=== PATIENT | male | born 1975 | race Caucasian/White ===

== ENCOUNTER 2017-09-05 14:00 | Outpatient (RCR) | payer BC, SELFPAY ==
--- NOTE | 2017-06-27 10:59 | HP.PTEVAL_ITS ---
Patient's Visit Information NAIF BAKER is a 41 year old M referred to Physical Therapy by Shahid Benjamin with a diagnosis of RIGHT HIP LABRAL REPAIR ON 11/01/15 WITH REQUEST TO WORK ON PIRIFORMIS AND LB. Date of Evaluation: 06/26/17 Physical Therapist: Violeta Sams - Visit Plan Frequency: 2-3x /Week Duration: 4-6 Weeks Plan: POSTURE CORRECTION/STRENGTHENING, INSTRUCTION IN APPROPRIATE BODY MECHANICS AND ACTIVITY MODIFICATIONS. DLS STARTING WITH A NEUTRAL SPINE AND PROGRESSING ROM TOLERATED. SHOSHANA LE ROM, STRETCHING AND STRENGTHENING. HEP INSTRUCTION. RIGHT ROTATOR CUFF STRENGTHEING PROGRAM. VIDEO ANALYSIS WITH CORRECTIVE EX PROGRAM. - Subjective Subjective: Work/Leisure: GENER[employer] FOR [employer]. Disability: NO. Present symptoms: RIGHT LATERAL AND POSTERIOR HIP PAIN. RIGHT ANTERIOR AND AC JOINT PAIN. CHRONIC RIGHT BICEPS TENDONITIS. Present since: BACK: Jan, SHOULDER: ABOUT 7 YEARS. Pain Scale: BACK: WORST 6/10, LEAST 1/10, SHOULDER: WORST 8/10, LEAST 0/10. Currently: BACK: 1/10, SHOULDER: 0/10. Commenced as a result of: ACCUMULATION OF A LOT OF RUNNING (ABOUT 10 MILES ONCE A WEEK), BIKING (ABOUT 60 MILES ONCE A WEEK), AND BUILDING A PATIO. SPENT THE DAY BENT OVER WORKING ON PATIO AND FELT THE MUSCLES IN HIS BACK START TO LOCK UP BUT KEPT WORKING ANYWAY. BY THE EVENING COULD BARELY WALK FOR ABOUT 5 DAYS. I HAVE NEVER HAD SPASMS IN MY BACK LIKE THAT BEFORE. FAR HIS SHOULDER PAIN GOES HE STATES IT IS CHRONIC. SHOULDER MIGHT JUST BE FROM WORKING. Symptoms at onset: BACK FOR HIP AND SHOULDER FOR SHOULDER THEN MIGRATED INTO BICEPS. Worse: BACK: HARD TO MOVE WHEN GETTING UP IN THE MORNING - THE RIGHT LEG WON'T WORK. RUNNING. SQUATTING FOR STRENGTHEING. REALLY TRYING TO DO ANY SORT OF LEG STRENGTHENING. BIKING EVEN HURTS NOW. RUNNING. BENDING. LIFTING. SHOULDER: PULL UP, BENCH PRESS, ANYTHING OVER-HEAD AND RUNNING. Better: BACK: RESTING - NOT EXERCISING, BUT SOMETIMES EX HELPS TOO. SHOULDER: RESTING - NOT EXERCISING. Disturbed sleep: NO. Previous history/Previous treatment: BACK: ACUPUNCTURE - HELPED, CHIROPRACTOR - HELPED , MASSAGE - HELPED, PT - HELPED TOO. RIGHT SHOULDER: SHOSHANA SHOULDER CORTISONE INJECTIONS - WITH SOME BENEFIT. Coughing/sneezing/straining: NO. Gait: NOT CURRENTLY. Difficulty initiating urinatin: NO. Accidents: NO. Unexplained weight loss: NO. Imaging: BACK: CHIROPRACTIC X-RAYS IN THE PAST WITH MILD DEGERATIVE CHANGES. NO MRI. RIGHT SHOULDER: X-RAYS AND MRI - BONE SPUR, LABRAL TEAR, MILD AC JT ARTHRITIS. ROTATOR CUFF LOOKS GOOD. PMH: UNREMARKABLE. 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 - Objective Sitting Posture: POOR. Standing Posture: FAIR. Lordosis: NORMAL. Lateral shift: NO (PATIENT DOES DESCRIBE THAT HE HAS HOWEVER BEEN WAKING UP WITH A RIGHT LATERAL SHIFT FOR A LONG TIME). Relevant shift: N/A. Other Observations : INDEP GAIT AND TRANSFERS WITHOUT OBVIOUS DEVIATIONS. Motor deficit: SHOSHANA UE AND LE MMT 5/5. ROM deficit: TIGHT SHOSHANA HS'S AND GASTROC SOLEUS COMPLEX'S. Dural Signs: POSITIVE SHOSHANA LE DURAL SIGNS *LEFT GREATER THAN RIGHT. Lumbar mvmt loss: flex - MIN. ext - MIN. R SG - NIL. L SG - MIN. Core strength: POOR. Palpation: NO PALPABLE TENDERNESS OF SHOULDER, HIP OR LUMBAR REGIONS TODAY - Goals Goal 1:: DECREASE C/O RIGHT LE SX'S Goal Time Frame: 4-6 Weeks Goal 2:: DECREASE C/O RIGHT SHOULDER SX'S Goal Time Frame: 4-6 Weeks Goal 3:: IMPROVE BENDING, LIFTING, SQUATTING, RUNNING, BIKING AND WEIGHT LIFTING FUNCTION. Goal Time Frame: 4-6 Weeks Goal 4:: INSTRUCT IN PROPHYLAXIS Goal Time Frame: 4-6 Weeks - Rehabilitation Potential Physical Therapy Diagnosis: PHYSICIAN DIAGNOSIS CONTINUED: IMPINGEMENT SYNDROME OF THE RIGHT SHOULDER. Rehabilitation Potential: Good - Anticipated Interventions Patient/Client Instruction: Educate patient on: Condition, Plan of Care, Risk Factors, Benefits of Fitness Program For the Purpose of:: To improve self management Therapeutic Exercise to Include: Strength training, Body mechanics, Postural training, Flexibilty training, Dynamic Lumbar Stabilization, Scapular Strength/ Stabilization For the Purpose of:: To improve muscle performance and motor function, To increase tolerance to activity/condition/position, To improve ability of physical actions for home/community/work/leisure, To increase flexibility/ROM, To reduce risk of recurrence TENS: Yes IF ES: Yes Cryotherapy (ice pack, ice massage): Yes Thermo therapy (hot pack): Yes Ultrasound (thermal/non thermal): Yes For the Purpose of:: To decrease pain, To decrease swelling/inflammation, To increase ROM Thank you for the opportunity to evaluate your patient. For Medicare and Medicare HMO plans, please review the plan of care and approve it. It will need to be FAXED BACK to us at [phone] for Medicare purposes. Please let me know if there are questions or concerns regarding this plan of care. Physician Signature: Date:
--- NOTE | 2018-01-08 14:07 | HP.PTDCNRP_ITS ---
HP - Discharge Summary (1) - Patient Information NAIF BAKER was seen in my office for initial evaluation on 06/26/17. The following Plan of Care was established for this patient: Initial Frequency: 2-3x /Week Initial Duration: 4-6 Weeks - Anticipated Interventions Patient/Client Instruction: Educate patient on: Condition, Plan of Care, Risk Factors, Benefits of Fitness Program For the Purpose of:: To improve self management Therapeutic Exercise to Include: Strength training, Body mechanics, Postural training, Flexibilty training, Dynamic Lumbar Stabilization, Scapular Strength/ Stabilization For the Purpose of:: To improve muscle performance and motor function, To increase tolerance to activity/condition/position, To improve ability of physical actions for home/community/work/leisure, To increase flexibility/ROM, To reduce risk of recurrence TENS: Yes IF ES: Yes Cryotherapy (ice pack, ice massage): Yes Thermo therapy (hot pack): Yes Ultrasound (thermal/non thermal): Yes For the Purpose of:: To decrease pain, To decrease swelling/inflammation, To increase ROM This patient was last seen in our office 09/05/17. Pertinent comments regarding their Physical therapy will appear below: Patient has been instructed in home ex program and has been discharged from Physical Therapy. At this point I will be discontinuing this patient from physical therapy. I would be happy to see this patient again in the future if found appropriate by the physician. Thank you! Violeta Sams
== END 2017-09-05 19:00 | disposition home or self-care (01) ==
LOC: PT 14:00
PROVIDERS: Visit Provider Orthopaedic Surgery Sports Medicine
DX: S73.191A Other sprain of right hip, initial encounter (principal)
CPT/HCPCS: 97110; 97161; 97162; 97530

== ENCOUNTER → 2019-10-03 07:09 | Outpatient (CLI) | payer BC, SELFPAY ==
[2019-10-03 10:14] LABS: Hematocrit 51.2 % (40-54); Mean Corp Hgb Conc 33.2 g/dL (32-36); Mean Corpuscular Hgb 29.8 pg (27.0-32.0); Mean Corpuscular Volume 89.8 fL (80-94); Mean Platelet Vol. 9.2 fl (6.2-12.0); Platelet Count 224 K/mm3 (150-450); RBC Distribution Width CV 11.9 % (11.6-14.6); White Blood Count 4.5 K/mm3 (4.4-11.0)
[2019-10-03 10:25] LABS: Progesterone Level 0.32 ng/mL (See Comment); Vitamin B12 733 pg/mL (211-911); Vitamin D,25 Hydroxy 58.4 ng/mL
[2019-10-03 10:33] LABS: ALB/GLOB Ratio 1.4 RATIO (0.9-2.4); AST(SGOT) 29 U/L (15-37); Alanine Aminotransfer ALT/SGPT 37 U/L (16-61); Alkaline Phosphatase 68 U/L (45-117); Anion Gap 5 (5-15); BUN 20 mg/dL (7-18); BUN/Creat Ratio 18.9 RATIO (10-20); Calcium,Total 8.8 mg/dL (8.5-10.1); Chloride 109 mmol/L (98-107); Cholesterol 213 mg/dL (200); Creatinine, Serum 1.06 mg/dL (0.70-1.30); EST Glomerular Filtration Rate 81 mL/min (>60); Est Glom Filt Rate - Afr Amer 98 mL/min (>60); Estradiol 42.5 pg/mL; Globulin 2.9 g/dL (2.2-4.2); Glucose 82 mg/dL (74-106); High Density Lipoprotein 60 mg/dL; PSA,Total - Annual Screen 0.96 ng/mL (0.00-4.00); Protein, Total 6.9 g/dL (6.4-8.2); Sodium Level 141 mmol/L (136-145); Triglycerides 66 mg/dL; Very Low Density Lipoprotein 13 mg/dL (5-40)
[2019-10-05 20:06] LABS: Testosterone, % Free 3.35 % (1.50-4.20); Testosterone, Free 35.11 ng/dL (5.00-21.00)
[2019-10-06 16:00] LABS: DHEA Sulfate 226.5 ug/dL (102.6-416.3); Testosterone, Total 1048 ng/dL (264-916)
== END ==
PROVIDERS: PCP Nurse Practitioner Family; Referring Provider Nurse Practitioner Family; Visit Provider Nurse Practitioner Family
DX: R53.82 Chronic fatigue, unspecified (principal); M62.81 Muscle weakness (generalized); R68.82 Decreased libido
CPT/HCPCS: 36415; 80053; 80061; 82306; 82607; 82627; 82670; 82746; 84144; 84153; 84402; 84403; 85027; 82626; G0103

== ENCOUNTER → 2020-03-05 07:20 | Outpatient (CLI) | payer BC, SELFPAY ==
[2020-03-05 10:13] LABS: Hematocrit 49.2 % (40-54); Hemoglobin 16.8 g/dL (13.0-16.5); Mean Corp Hgb Conc 34.1 g/dL (32-36); Mean Corpuscular Hgb 29.8 pg (27.0-32.0); Mean Corpuscular Volume 87.4 fL (80-94); Mean Platelet Vol. 9.4 fl (6.2-12.0); Platelet Count 223 K/mm3 (150-450); RBC Distribution Width SD 38.4 fl (35.1-43.9); Red Blood Count 5.63 M/mm3 (4.6-6.2); White Blood Count 5.7 K/mm3 (4.4-11.0)
[2020-03-05 10:42] LABS: Progesterone Level 0.52 ng/mL (See Comment); Vitamin B12 618 pg/mL (211-911); Vitamin D,25 Hydroxy 101.7 ng/mL
[2020-03-05 10:55] LABS: ALB/GLOB Ratio 1.3 RATIO (0.9-2.4); AST(SGOT) 24 U/L (15-37); Alanine Aminotransfer ALT/SGPT 42 U/L (16-61); Albumin, Serum 3.9 g/dL (3.2-5.0); Alkaline Phosphatase 60 U/L (45-117); Anion Gap 6 (5-15); BUN 19 mg/dL (7-18); BUN/Creat Ratio 18.4 RATIO (10-20); Calcium,Total 8.8 mg/dL (8.5-10.1); Chloride 106 mmol/L (98-107); Cholesterol 205 mg/dL (200); Creatinine, Serum 1.03 mg/dL (0.70-1.30); EST Glomerular Filtration Rate 84 mL/min (>60); Est Glom Filt Rate - Afr Amer 101 mL/min (>60); Estradiol 65.4 pg/mL; Glucose 85 mg/dL (74-106); High Density Lipoprotein 60 mg/dL; Potassium 3.9 mmol/L (3.5-5.1); Protein, Total 6.9 g/dL (6.4-8.2); Sodium Level 140 mmol/L (136-145); Triglycerides 84 mg/dL; Very Low Density Lipoprotein 17 mg/dL (5-40)
[2020-03-09 09:06] LABS: Testosterone, % Free 4.53 % (1.50-4.20); Testosterone, Free 44.58 ng/dL (5.00-21.00)
[2020-03-09 11:15] LABS: Testosterone, Total 984 ng/dL (264-916)
== END ==
PROVIDERS: PCP Nurse Practitioner Family; Referring Provider Nurse Practitioner Family; Visit Provider Nurse Practitioner Family
DX: R53.82 Chronic fatigue, unspecified (principal); M62.81 Muscle weakness (generalized); R68.82 Decreased libido
CPT/HCPCS: 36415; 80053; 80061; 82306; 82607; 82627; 82670; 82746; 84144; 84402; 84403; 85027; 82626

== ENCOUNTER → 2020-05-14 08:35 | Outpatient (CLI) | payer BC, SELFPAY ==
[2020-05-14 09:51] LABS: Hematocrit 50.3 % (40-54); Hemoglobin 17.2 g/dL (13.0-16.5); Mean Corp Hgb Conc 34.2 g/dL (32-36); Mean Corpuscular Hgb 29.6 pg (27.0-32.0); Mean Corpuscular Volume 86.4 fL (80-94); Mean Platelet Vol. 8.8 fl (6.2-12.0); Platelet Count 215 K/mm3 (150-450); RBC Distribution Width CV 11.9 % (11.6-14.6); RBC Distribution Width SD 37.2 fl (35.1-43.9); Red Blood Count 5.82 M/mm3 (4.6-6.2); White Blood Count 4.6 K/mm3 (4.4-11.0)
[2020-05-14 10:12] LABS: Progesterone Level 0.33 ng/mL (See Comment); Vitamin B12 758 pg/mL (211-911); Vitamin D,25 Hydroxy 100.3 ng/mL
[2020-05-14 10:49] LABS: ALB/GLOB Ratio 1.2 RATIO (0.9-2.4); AST(SGOT) 18 U/L (15-37); Alanine Aminotransfer ALT/SGPT 35 U/L (16-61); Albumin, Serum 4.1 g/dL (3.2-5.0); Alkaline Phosphatase 69 U/L (45-117); Anion Gap 4 (5-15); BUN 17 mg/dL (7-18); BUN/Creat Ratio 16.5 RATIO (10-20); Chloride 105 mmol/L (98-107); Cholesterol 216 mg/dL (200); Creatinine, Serum 1.03 mg/dL (0.70-1.30); EST Glomerular Filtration Rate 84 mL/min (>60); Est Glom Filt Rate - Afr Amer 101 mL/min (>60); Estradiol 47.9 pg/mL; Globulin 3.3 g/dL (2.2-4.2); Glucose 91 mg/dL (74-106); High Density Lipoprotein 65 mg/dL; Potassium 4.1 mmol/L (3.5-5.1); Protein, Total 7.4 g/dL (6.4-8.2); Sodium Level 138 mmol/L (136-145); Triglycerides 44 mg/dL; Very Low Density Lipoprotein 9 mg/dL (5-40)
[2020-05-18 12:07] LABS: Testosterone, % Free 3.86 % (1.50-4.20); Testosterone, Free 36.28 ng/dL (5.00-21.00)
[2020-05-18 13:31] LABS: Testosterone, Total 940 ng/dL (264-916)
== END ==
PROVIDERS: PCP Nurse Practitioner Family; Referring Provider Nurse Practitioner Family; Visit Provider Nurse Practitioner Family
DX: R53.82 Chronic fatigue, unspecified (principal); M62.81 Muscle weakness (generalized); R68.82 Decreased libido
CPT/HCPCS: 36415; 80053; 80061; 82306; 82607; 82627; 82670; 82746; 84144; 84402; 84403; 85027; 82626

== ENCOUNTER → 2020-08-06 07:29 | Outpatient (CLI) | payer BC, SELFPAY ==
[2020-08-06 10:39] LABS: Hematocrit 51.1 % (40-54); Hemoglobin 17.6 g/dL (13.0-16.5); Mean Corp Hgb Conc 34.4 g/dL (32-36); Mean Corpuscular Hgb 29.5 pg (27.0-32.0); Mean Corpuscular Volume 85.6 fL (80-94); Platelet Count 242 K/mm3 (150-450); RBC Distribution Width CV 11.9 % (11.6-14.6); Red Blood Count 5.97 M/mm3 (4.6-6.2); White Blood Count 4.7 K/mm3 (4.4-11.0)
[2020-08-06 10:53] LABS: Hemoglobin A1c 4.8 % (3.8-5.6)
[2020-08-06 10:55] LABS: Progesterone Level 0.21 ng/mL (See Comment); T3 Total - Triiodothyronine 0.83 ng/mL (0.6-1.81); Vitamin B12 680 pg/mL (211-911); Vitamin D,25 Hydroxy 81.3 ng/mL
[2020-08-06 11:06] LABS: Homocysteine 7.8 umol/L (3.2-10.7)
[2020-08-06 11:13] LABS: ALB/GLOB Ratio 1.4 RATIO (0.9-2.4); AST(SGOT) 20 U/L (15-37); Alanine Aminotransfer ALT/SGPT 31 U/L (16-61); Albumin, Serum 4.2 g/dL (3.2-5.0); Alkaline Phosphatase 74 U/L (45-117); Anion Gap 4 (5-15); BUN 18 mg/dL (7-18); BUN/Creat Ratio 15.9 RATIO (10-20); CRP, High Sensitivity Cardiac 0.25 mg/L; Chloride 105 mmol/L (98-107); Cholesterol 221 mg/dL (200); Creatinine, Serum 1.13 mg/dL (0.70-1.30); EST Glomerular Filtration Rate 75 mL/min (>60); Est Glom Filt Rate - Afr Amer 91 mL/min (>60); Estradiol 48.3 pg/mL; Follicle Stimulating Hormone < 0.2 mIU/mL; Globulin 3.1 g/dL (2.2-4.2); Glucose 91 mg/dL (74-106); High Density Lipoprotein 60 mg/dL; Iron 132 ug/dL (65-175); Luteinizing Hormone < 0.2 mIU/mL; Magnesium 2.3 mg/dL (1.6-2.6); PSA,Total - Annual Screen 0.95 ng/mL (0.00-4.00); Prolactin 5.6 ng/mL; Protein, Total 7.3 g/dL (6.4-8.2); Sodium Level 138 mmol/L (136-145); T4 Free Direct 1.09 ng/dL (0.76-1.46); T4 Total, Thyroxin 6.7 ug/dL (4.5-12.1); Thyroid Stim Hormone (TSH) 1.83 uIU/mL (0.358-3.74); Triglycerides 77 mg/dL; Very Low Density Lipoprotein 15 mg/dL (5-40)
[2020-08-09 09:07] LABS: DHEA Sulfate 92.1 ug/dL (102.6-416.3); Insulin Like Growth Factor 193 ng/mL (84-270); Testosterone, % Free 3.65 % (1.50-4.20); Testosterone, Free 37.45 ng/dL (5.00-21.00)
[2020-08-09 13:45] LABS: Sex Hormone-binding Globulin 42.8 nmol/L (16.5-55.9); Testosterone, Total 1026 ng/dL (264-916)
== END ==
PROVIDERS: PCP Nurse Practitioner Family; Referring Provider Nurse Practitioner Family; Visit Provider Nurse Practitioner Family
DX: R53.82 Chronic fatigue, unspecified (principal); M62.81 Muscle weakness (generalized); R68.82 Decreased libido
CPT/HCPCS: 36415; 80053; 80061; 82306; 82533; 82607; 82627; 82670; 82746; 83001; 83002; 83036; 83090; 83540; 83735; 84144; 84146; 84153; 84270; 84305; 84402; 84403; 84436; 84439; 84443; 84480; 85027; 86141; 82626; G0103

== ENCOUNTER → 2021-02-18 07:00 | Outpatient (CLI) | payer BC, SELFPAY ==
[2021-02-18 10:01] LABS: Hematocrit 52.5 % (40-54); Mean Corp Hgb Conc 34.3 g/dL (32-36); Mean Corpuscular Hgb 29.5 pg (27.0-32.0); Mean Corpuscular Volume 85.9 fL (80-94); Mean Platelet Vol. 9.3 fl (6.2-12.0); Platelet Count 225 K/mm3 (150-450); RBC Distribution Width CV 12.2 % (11.6-14.6); RBC Distribution Width SD 38.2 fl (35.1-43.9); Red Blood Count 6.11 M/mm3 (4.6-6.2); White Blood Count 5.3 K/mm3 (4.4-11.0)
[2021-02-18 10:04] LABS: Scan Indicated on CBC? Y/N NO
[2021-02-18 10:14] LABS: Homocysteine 8.8 umol/L (3.2-10.7)
[2021-02-18 10:24] LABS: Hemoglobin A1c 4.8 % (3.8-5.6)
[2021-02-18 10:49] LABS: ALB/GLOB Ratio 1.2 RATIO (0.9-2.4); AST(SGOT) 20 U/L (15-37); Alanine Aminotransfer ALT/SGPT 32 U/L (16-61); Alkaline Phosphatase 60 U/L (45-117); Anion Gap 5 (5-15); BUN 18 mg/dL (7-18); BUN/Creat Ratio 16.8 RATIO (10-20); CRP, High Sensitivity Cardiac 0.43 mg/L; Calcium,Total 8.9 mg/dL (8.5-10.1); Chloride 106 mmol/L (98-107); Cholesterol 208 mg/dL (200); Creatinine, Serum 1.07 mg/dL (0.70-1.30); EST Glomerular Filtration Rate 80 mL/min (>60); Est Glom Filt Rate - Afr Amer 96 mL/min (>60); Estradiol 83.7 pg/mL; Follicle Stimulating Hormone < 0.2 mIU/mL; Globulin 3.2 g/dL (2.2-4.2); Glucose 80 mg/dL (74-106); High Density Lipoprotein 56 mg/dL; Iron 204 ug/dL (65-175); Luteinizing Hormone < 0.2 mIU/mL; Magnesium 2.4 mg/dL (1.6-2.6); PSA,Total - Annual Screen 1.22 ng/mL (0.00-4.00); Protein, Total 7.2 g/dL (6.4-8.2); Sodium Level 139 mmol/L (136-145); T4 Total, Thyroxin 7.2 ug/dL (4.5-12.1); Thyroid Stim Hormone (TSH) 1.65 uIU/mL (0.358-3.74); Triglycerides 74 mg/dL; Very Low Density Lipoprotein 15 mg/dL (5-40)
[2021-02-18 11:16] LABS: Progesterone Level 0.44 ng/mL (See Comment); T3 Total - Triiodothyronine 1.18 ng/mL (0.6-1.81); Vitamin B12 711 pg/mL (211-911); Vitamin D,25 Hydroxy 110.3 ng/mL
[2021-02-21 12:49] LABS: Pathologist Review Reviewed
[2021-02-27 12:07] LABS: DHEA Sulfate 83.3 ug/dL (102.6-416.3); Insulin Like Growth Factor 194 ng/mL (84-270); Testosterone, Free 75.19 ng/dL (5.00-21.00)
[2021-02-27 12:20] LABS: Sex Hormone-binding Globulin 31.8 nmol/L (16.5-55.9); Testosterone, % Free 5.28 % (1.50-4.20); Testosterone, Total 1424 ng/dL (264-916)
== END ==
PROVIDERS: Referring Provider Nurse Practitioner Family; Visit Provider Nurse Practitioner Family
DX: R53.82 Chronic fatigue, unspecified (principal); M62.81 Muscle weakness (generalized); R68.82 Decreased libido; E29.1 Testicular hypofunction
CPT/HCPCS: 36415; 80053; 80061; 82306; 82533; 82607; 82627; 82670; 82746; 83001; 83002; 83036; 83090; 83540; 83735; 84144; 84146; 84153; 84270; 84305; 84402; 84403; 84436; 84439; 84443; 84480; 85027; 86141; 82626; G0103

== ENCOUNTER → 2021-10-28 | Outpatient (CLI) | payer BC, SELFPAY ==
[2021-10-28 10:17] LABS: Hematocrit 54.2 % (40-54); Hemoglobin 19.1 g/dL (13.0-16.5); Mean Corp Hgb Conc 35.2 g/dL (32-36); Mean Corpuscular Volume 85.1 fL (80-94); Mean Platelet Vol. 8.9 fl (6.2-12.0); Platelet Count 239 K/mm3 (150-450); RBC Distribution Width CV 12.1 % (11.6-14.6); Red Blood Count 6.37 M/mm3 (4.6-6.2); White Blood Count 4.9 K/mm3 (4.4-11.0)
[2021-10-28 10:24] LABS: Scan Indicated on CBC? Y/N NO
[2021-10-28 10:36] LABS: T3 Total - Triiodothyronine 1.09 ng/mL (0.6-1.81); Vitamin B12 715 pg/mL (211-911); Vitamin D,25 Hydroxy 104.7 ng/mL
[2021-10-28 10:37] LABS: Hemoglobin A1c 4.7 % (3.8-5.6)
[2021-10-28 11:13] LABS: ALB/GLOB Ratio 1.3 RATIO (0.9-2.4); AST(SGOT) 23 U/L (15-37); Alanine Aminotransfer ALT/SGPT 40 U/L (16-61); Albumin, Serum 4.4 g/dL (3.2-5.0); Alkaline Phosphatase 65 U/L (45-117); Anion Gap 5 (5-15); BUN 16 mg/dL (7-18); BUN/Creat Ratio 13.7 RATIO (10-20); CRP, High Sensitivity Cardiac 0.44 mg/L; Chloride 105 mmol/L (98-107); Cholesterol 206 mg/dL (200); Creatinine, Serum 1.17 mg/dL (0.70-1.30); EST Glomerular Filtration Rate 72 mL/min (>60); Est Glom Filt Rate - Afr Amer 87 mL/min (>60); Estradiol 61.9 pg/mL; Follicle Stimulating Hormone < 0.2 mIU/mL; Globulin 3.3 g/dL (2.2-4.2); Glucose 90 mg/dL (74-106); High Density Lipoprotein 55 mg/dL; Iron 150 ug/dL (65-175); Luteinizing Hormone < 0.2 mIU/mL; PSA,Total - Annual Screen 1.29 ng/mL (0.00-4.00); Potassium 4.3 mmol/L (3.5-5.1); Prolactin 7.1 ng/mL; Protein, Total 7.7 g/dL (6.4-8.2); Sodium Level 138 mmol/L (136-145); T4 Free Direct 0.96 ng/dL (0.76-1.46); T4 Total, Thyroxin 8.4 ug/dL (4.5-12.1); Triglycerides 67 mg/dL; Very Low Density Lipoprotein 13 mg/dL (5-40)
[2021-10-28 12:37] LABS: Progesterone Level < 0.21 ng/mL (See Comment)
[2021-10-30 21:12] LABS: Pathologist Review Reviewed
[2021-11-02 10:09] LABS: DHEA Sulfate 80.9 ug/dL (71.6-375.4); Insulin Like Growth Factor 196 ng/mL (84-270); Testosterone, % Free 2.82 % (1.50-4.20); Testosterone, Free 36.29 ng/dL (5.00-21.00)
[2021-11-02 11:31] LABS: Sex Hormone-binding Globulin 39.9 nmol/L (16.5-55.9); Testosterone, Total 1287 ng/dL (264-916)
== END | disposition home or self-care (01) ==
PROVIDERS: Referring Provider Nurse Practitioner Family; Visit Provider Nurse Practitioner Family
DX: R53.82 Chronic fatigue, unspecified (principal); M62.81 Muscle weakness (generalized); R68.82 Decreased libido; E29.1 Testicular hypofunction
CPT/HCPCS: 36415; 80053; 80061; 82306; 82533; 82607; 82627; 82670; 82746; 83001; 83002; 83036; 83090; 83540; 83735; 84144; 84146; 84153; 84270; 84305; 84402; 84403; 84436; 84439; 84443; 84480; 85027; 86141; 82626; G0103

== ENCOUNTER 2022-05-26 07:01 | Outpatient (CLI) | payer BC, SELFPAY ==
[2022-05-26 09:46] LABS: Absolute Lymphocyte Count 1.76 X10^3/uL (0.83-4.51); Absolute Neutrophil Count 2.8 X10^3/uL (2.0-7.7); Basophil# 0.04 X10^3/uL; Basophil% 0.8 % (0-1); Color, Urine Yellow (Yellow); Eosinophil# 0.13 X10^3/uL; Eosinophils% 2.5 % (0-5); Glucose, Dipstick Normal (Normal); Hematocrit 51.1 % (40-54); Hemoglobin 17.6 g/dL (13.0-16.5); Ketone-Dipstick 5 mg/dl (Negative); Leukocyte Esterase-Dipstick 25 /ul (Negative); Lymphocyte # 1.76 X10^3/ul (0.83-4.51); Lymphocyte % 33.5 % (19-41); Mean Corp Hgb Conc 34.4 g/dL (32-36); Mean Corpuscular Hgb 29.7 pg (27.0-32.0); Mean Corpuscular Volume 86.3 fL (80-94); Mean Platelet Vol. 8.8 fl (6.2-12.0); Monocyte# 0.55 X10^3/uL; Monocyte% 10.5 % (0-10); NRBC Flagged by Analyzer 0 % (0-5); Neutrophil # 2.75 X10^3/uL (2.7-7.7); Neutrophil % 52.3 % (47-70); Nitrite-Dipstick Negative (Negative); Occult Blood-Urine Negative /ul (Negative); Platelet Count 217 K/mm3 (150-450); Protein-Dipstick Negative (Negative); RBC Distribution Width CV 12.1 % (11.6-14.6); RBC Distribution Width SD 38.3 fl (35.1-43.9); Red Blood Count 5.92 M/mm3 (4.6-6.2); Urine Bilirubin Dipstick Negative (Negative); Urine Clarity Clear (Clear); Urine Urobilinogen Normal (Normal); White Blood Count 5.3 K/mm3 (4.4-11.0)
[2022-05-26 09:58] LABS: BNP,B-Type NATRIURETIC PEPTIDE 4.9 pg/mL (0-100)
[2022-05-26 10:02] LABS: Vitamin D,25 Hydroxy 113.4 ng/mL
[2022-05-26 10:04] LABS: ALB/GLOB Ratio 1.4 RATIO (0.9-2.4); AST(SGOT) 26 U/L (15-37); Alanine Aminotransfer ALT/SGPT 35 U/L (16-61); Albumin, Serum 3.8 g/dL (3.2-5.0); Alkaline Phosphatase 58 U/L (45-117); Anion Gap 5 (5-15); BUN 17 mg/dL (7-18); BUN/Creat Ratio 14.7 RATIO (10-20); Calcium,Total 8.5 mg/dL (8.5-10.1); Chloride 106 mmol/L (98-107); Cholesterol 188 mg/dL (200); Creatinine, Serum 1.16 mg/dL (0.70-1.30); EST Glomerular Filtration Rate 72 mL/min (>60); Est Glom Filt Rate - Afr Amer 87 mL/min (>60); Globulin 2.7 g/dL (2.2-4.2); Glucose 90 mg/dL (74-106); High Density Lipoprotein 49 mg/dL; Protein, Total 6.5 g/dL (6.4-8.2); Sodium Level 140 mmol/L (136-145); Triglycerides 79 mg/dL; Very Low Density Lipoprotein 16 mg/dL (5-40)
[2022-05-30 13:07] LABS: Red Blood Cell Count Test/G6PD 5.98 x10E6/uL (4.14-5.80)
[2022-05-30 15:26] LABS: G6PD Quant Test 234 (127-427)
== END 2022-05-26 23:59 | disposition home or self-care (01) ==
LOC: MTLAB 07:02
PROVIDERS: Referring Provider Nurse Practitioner Family; Visit Provider Nurse Practitioner Family
DX: R53.82 Chronic fatigue, unspecified (principal); M62.81 Muscle weakness (generalized)
CPT/HCPCS: 36415; 80053; 80061; 81002; 82306; 82955; 83880; 85025

== ENCOUNTER 2022-05-31 07:41 | Outpatient (CLI) | payer BC, SELFPAY ==
[2022-05-31 10:34] LABS: Vitamin B12 874 pg/mL (211-911)
[2022-05-31 10:54] LABS: Homocysteine 8.1 umol/L (3.2-10.7)
[2022-05-31 11:38] LABS: CRP, High Sensitivity Cardiac 0.35 mg/L; Estradiol 47.5 pg/mL; Follicle Stimulating Hormone < 0.2 mIU/mL; Luteinizing Hormone < 0.2 mIU/mL; Prolactin 5.6 ng/mL; T4 Total, Thyroxin 7.4 ug/dL (4.5-12.1)
[2022-06-10 16:08] LABS: Insulin Like Growth Factor 171 ng/mL (84-270); Testosterone, % Free 3.59 % (1.50-4.20); Testosterone, Free 28.29 ng/dL (5.00-21.00)
[2022-06-10 20:28] LABS: Sex Hormone-binding Globulin 36.8 nmol/L (16.5-55.9); Testosterone, Total 788 ng/dL (264-916)
== END 2022-05-31 23:59 | disposition home or self-care (01) ==
LOC: MTLAB 07:42
PROVIDERS: Referring Provider Nurse Practitioner Family; Visit Provider Nurse Practitioner Family
DX: R53.82 Chronic fatigue, unspecified (principal); M62.81 Muscle weakness (generalized); R68.82 Decreased libido
CPT/HCPCS: 36415; 82533; 82607; 82627; 82670; 82746; 83001; 83002; 83090; 84146; 84153; 84270; 84305; 84402; 84403; 84436; 86141; 82626; G0103

== ENCOUNTER → 2022-10-06 | Outpatient (CLI) | payer BC, SELFPAY ==
[2022-10-06 10:39] LABS: Hemoglobin A1c 4.9 % (3.8-5.6)
[2022-10-06 10:52] LABS: Absolute Lymphocyte Count 1.56 X10^3/uL (0.83-4.51); Absolute Neutrophil Count 2.8 X10^3/uL (2.0-7.7); Basophil# 0.04 X10^3/uL; Basophil% 0.8 % (0-1); Eosinophil# 0.11 X10^3/uL; Eosinophils% 2.2 % (0-5); Hematocrit 52.5 % (40-54); Lymphocyte # 1.56 X10^3/ul (0.83-4.51); Lymphocyte % 31.4 % (19-41); Mean Corp Hgb Conc 34.9 g/dL (32-36); Mean Corpuscular Volume 86.2 fL (80-94); Mean Platelet Vol. 9.1 fl (6.2-12.0); Monocyte# 0.45 X10^3/uL; Monocyte% 9.1 % (0-10); NRBC Flagged by Analyzer 0 % (0-5); Neutrophil % 56.3 % (47-70); Platelet Count 225 K/mm3 (150-450); RBC Distribution Width CV 11.9 % (11.6-14.6); RBC Distribution Width SD 37.7 fl (35.1-43.9); Red Blood Count 6.09 M/mm3 (4.6-6.2)
[2022-10-06 10:53] LABS: ALB/GLOB Ratio 1.2 RATIO (0.9-2.4); AST(SGOT) 24 U/L (15-37); Alanine Aminotransfer ALT/SGPT 37 U/L (16-61); Albumin, Serum 3.8 g/dL (3.2-5.0); Alkaline Phosphatase 62 U/L (45-117); Anion Gap 3 (5-15); BUN 18 mg/dL (7-18); BUN/Creat Ratio 14.6 RATIO (10-20); Calcium,Total 8.9 mg/dL (8.5-10.1); Chloride 104 mmol/L (98-107); Cholesterol 198 mg/dL (200); Creatinine, Serum 1.23 mg/dL (0.70-1.30); EST Glomerular Filtration Rate 67 mL/min (>60); Est Glom Filt Rate - Afr Amer 81 mL/min (>60); Estradiol 64.4 pg/mL; Free T3 3.1 pg/mL (2.18-3.98); Globulin 3.1 g/dL (2.2-4.2); Glucose 84 mg/dL (74-106); High Density Lipoprotein 51 mg/dL; Potassium 3.9 mmol/L (3.5-5.1); Prolactin 6.4 ng/mL; Protein, Total 6.9 g/dL (6.4-8.2); Sodium Level 138 mmol/L (136-145); T4 Free Direct 0.91 ng/dL (0.76-1.46); Thyroid Stim Hormone (TSH) 1.46 uIU/mL (0.358-3.74); Triglycerides 72 mg/dL; Very Low Density Lipoprotein 14 mg/dL (5-40)
[2022-10-06 11:08] LABS: Hemoglobin 18.3 g/dL (13.0-16.5)
[2022-10-10 14:09] LABS: Testosterone, % Free 2.28 % (1.50-4.20); Testosterone, Free 21.41 ng/dL (5.00-21.00)
[2022-10-10 14:41] LABS: DHEA Sulfate 76.9 ug/dL (71.6-375.4); Testosterone, Total 939 ng/dL (264-916)
== END | disposition home or self-care (01) ==
LOC: MTLAB 07:31
DX: R53.83 Other fatigue (principal); E29.1 Testicular hypofunction; E55.9 Vitamin D deficiency, unspecified
CPT/HCPCS: 36415; 80053; 80061; 82627; 82670; 83036; 84146; 84402; 84403; 84439; 84443; 84481; 85025; 82626

== ENCOUNTER → 2023-01-26 | Outpatient (CLI) | payer BC, SELFPAY ==
[2023-02-02 11:09] LABS: Testosterone, % Free 3.42 % (1.50-4.20); Testosterone, Free 43.23 ng/dL (5.00-21.00); Testosterone, Total 1264 ng/dL (264-916)
== END | disposition home or self-care (01) ==
DX: E29.1 Testicular hypofunction (principal)
CPT/HCPCS: 36415; 82627; 84402; 84403; 82626

== ENCOUNTER → 2023-09-07 | Outpatient (CLI) | payer BC, SELFPAY ==
--- OUTSIDE RECORDS SUMMARY | 2023-09-07 07:38 | XMS RPT_ITS | CCD ---
Author Name Unknown Address [address] [place] [address] Organization [facility] Results Test Name Value Interpretation Reference Range Facil ity Summary Purpose Family History No Family History Records Found Advance Directives No Advanced Directives Records Found Additional Source Comments (unrecognized sect ion and content) No Status Records Found INFORMATION SOURCE (unrecogn ized section and content) FOR RECORDS PERTAINING TO PATIENTS WHO ARE OR HAVE BEEN ENROLLED IN A CHEMICAL DEPENDENCY/SUBSTANCEABUSE PROGRAM, SOME INFORMATION MAY BE OMITTED. This clinical summary was aggregated from multiple sources. Caution should be exercised in using it in the provision of clinical care. This summary normalizes information from multiple sources, and as a consequence, information in this document may materially change the coding, format and clinical context of patient data. In addition, data may be omitted in some cases. CLINICAL DECISIONS SHOULD BE BASED ON THE PRIMARY CLINICAL RECORDS. [employer] provides no warranty or guarantee of the accuracy or completeness of information in this document.
[2023-09-07 10:03] LABS: Hematocrit 52.6 % (40-54); Hemoglobin 18.2 g/dL (13.0-16.5); Mean Corp Hgb Conc 34.6 g/dL (32-36); Mean Corpuscular Hgb 30.3 pg (27.0-32.0); Mean Corpuscular Volume 87.5 fL (80-94); Mean Platelet Vol. 8.9 fl (6.2-12.0); Platelet Count 203 K/mm3 (150-450); RBC Distribution Width CV 12.5 % (11.6-14.6); RBC Distribution Width SD 40.5 fl (35.1-43.9); Red Blood Count 6.01 M/mm3 (4.6-6.2)
[2023-09-07 10:06] LABS: Scan Indicated on CBC? Y/N NO
[2023-09-07 10:59] LABS: ALB/GLOB Ratio 1.2 RATIO (0.9-2.4); AST(SGOT) 26 U/L (15-37); Alanine Aminotransfer ALT/SGPT 40 U/L (16-61); Albumin, Serum 3.7 g/dL (3.2-5.0); Alkaline Phosphatase 75 U/L (45-117); Anion Gap 5 (5-15); BUN 16 mg/dL (7-18); BUN/Creat Ratio 12.3 RATIO (10-20); Calcium,Total 9.1 mg/dL (8.5-10.1); Chloride 108 mmol/L (98-107); EST Glomerular Filtration Rate 63 mL/min (>60); Est Glom Filt Rate - Afr Amer 76 mL/min (>60); Estradiol 83.2 pg/mL; Globulin 3.2 g/dL (2.2-4.2); Glucose 88 mg/dL (74-106); Potassium 4.3 mmol/L (3.5-5.1); Protein, Total 6.9 g/dL (6.4-8.2); Sodium Level 139 mmol/L (136-145)
[2023-09-11 07:55] LABS: Pathologist Review Reviewed
== END | disposition home or self-care (01) ==
DX: E29.1 Testicular hypofunction (principal); Z79.890 Hormone replacement therapy
CPT/HCPCS: 36415; 80053; 82024; 82627; 82670; 84153; 84402; 84403; 85027; 82626; G0103